=== PATIENT | female | born 1975 | race American Indian/Alaskan Native ===

== ENCOUNTER 2020-08-14 12:11 | Outpatient (CLI) | payer OTHER | END 2020-08-14 13:04 | disposition home or self-care (01) | LOC: NST 12:11 | PROVIDERS: ATTEND Obstetrics & Gynecology Maternal & Fetal Medicine | DX: Z34.83 Encounter for supervision of other normal pregnancy, third trimester (principal) ==

== ENCOUNTER 2020-08-14 13:24 | Outpatient (CLI) | payer OTHER | END 2020-08-14 13:28 | disposition home or self-care (01) | LOC: LAB 13:24 | PROVIDERS: ATTEND Obstetrics & Gynecology Maternal & Fetal Medicine | DX: Z34.83 Encounter for supervision of other normal pregnancy, third trimester (principal) ==

== ENCOUNTER 2020-08-24 12:45 | Inpatient (IN) | payer OTHER ==
[~2020-08-24] VITALS: Ht 167.6 cm; Wt 2.7 kg
[2020-08-24] MEDS ORDERED: PRENATAL + DHA1 EAC1 PO (16:02)
== END 2020-08-31 17:09 | disposition home or self-care (01) | DRG 788 ==
LOC: OB/GYN 08-28 07:00 → O/R 08-28 12:15 → OB/GYN 08-28 12:45
PROVIDERS: ADMIT Obstetrics & Gynecology; ATTEND Obstetrics & Gynecology
PROC: 4A1HXFZ Monitoring of Products of Conception, Cardiac Rhythm, External Approach (ICD-10-PCS; 2020-08-28)
PROC: 10D00Z1 Extraction of Products of Conception, Low, Open Approach (ICD-10-PCS; principal; 2020-08-28 07:00)
DX: O44.03 Complete placenta previa NOS or without hemorrhage, third trimester (principal); Z3A.36 36 weeks gestation of pregnancy; Z37.0 Single live birth; Z20.822 Contact with and (suspected) exposure to COVID-19